=== PATIENT | male | born 1985 | race Caucasian/White ===

== ENCOUNTER 2017-04-14 17:54 | Emergency (ER) | payer SELFPAY ==
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
== END 2017-04-14 19:00 ==
LOC: EDBD → ED 17:58
DX: I46.9 Cardiac arrest, cause unspecified (principal); S01.402A Unspecified open wound of left cheek and temporomandibular area, initial encounter; S11.90XA Unspecified open wound of unspecified part of neck, initial encounter; W34.09XA Accidental discharge from other specified firearms, initial encounter; Y93.89 Activity, other specified; Y99.8 Other external cause status; Y92.89 Other specified places as the place of occurrence of the external cause